=== PATIENT | male | born 1990 | race Caucasian/White ===

== ENCOUNTER 2025-06-10 17:59 | Emergency (ER) | payer OTHER ==
[2025-06-10] MEDS ORDERED: ONDANSETRON 4 MG/2 ML VIAL ONE (18:16)
[2025-06-10] MEDS ORDERED: NA CHLORIDE 0.9% 1,000 ML ONE (18:16)
[2025-06-10 18:18] LABS: Absolute Lymphocytes (CBC) 1.0 K/uL (0.7-4.9); Hematocrit 41.7 % (39.6-49.0); Hemoglobin 14.2 g/dL (13.6-17.9); MCH 31.8 pg (27.0-35.0); MCHC 34.1 g/dL (32.0-36.0); MCV 93.2 fL (80-100); MPV 9.1 fL (7.6-11.3); Nucleated RBC Absolute Count 0.0 (0-0); Nucleated Red Blood Cells % 0.1 % (0-0); RBC Red Blood Cell Count 4.47 M/uL (4.33-5.43); White Blood Count 8.00 thou/uL (4.3-10.9)
[2025-06-10 18:49] LABS: ALT/SGPT 57 U/L (16-61); AST/SGOT 26 U/L (15-37); Albumin 4.1 g/dL (3.4-5.0); Albumin/Globulin Ratio 1.2 (1.1-1.8); Alkaline Phosphatase 85 U/L (45-117); Anion Gap 8.1 mEq/L (5.0-15.0); BUN Blood Urea Nitrogen 16 mg/dL (7-18); Globulin 3.3 g/dL (2.3-3.5); Glucose Level 124 mg/dL (74-106); Potassium 4.1 mEq/L (3.5-5.1)
[2025-06-10 18:52] LABS: Bilirubin Indirect, Calculated 0.1 mg/dL (0.2-0.8)
--- NOTE | 2025-06-10 18:55 | RAD REPORT ---
EXAMINATION: ONE VIEW CHEST XR CLINICAL INDICATION: Male, 34 years old.,COUGH TECHNIQUE: Frontal chest projection is submitted. Examination is limited by patient positioning and t echnique. COMPARISON: No prior exam. FINDINGS: The lungs are well inflated and clear. No pneumothorax or sizable effusion. The heart is normal in s ize. Mediastinal contours are unremarkable. IMPRESSION: No acute intrathoracic abnormalities.
[2025-06-10 18:59] LABS: METHAMPHETAM NEGATIVE (NEGATIVE); THC Cannibis NEGATIVE (NEGATIVE)
--- NOTE | 2025-06-10 20:17 | EDPHYS ---
Physician Documentation [facility] Name: Ravi Marsh Age: 34 yrs Sex: Male : 1990 Arrival Date: 06/10/2025 Time: 17:59 Bed 24 Private MD: ED Physician Jan Hein HPI: 06/10 18:41 This 34 yrs old Male presents to ER via EMS with complaints of Overdose. kb 18:33 Pt is a 34 year old male who presents for nausea and vomiting after taking 25 Rugby kb 650mg tablets. States he took the medication in attempt to kill himself. . Historical: - Allergies: 18:06 No Known Allergies; mb9 - Home Meds: 18:06 None [Active]; mb9 - PMHx: 18:06 None; mb9 - PSHx: 18:06 None; mb9 - Immunization history:: Adult Immunizations up to date. - Infectious Disease History:: Denies. - Social history:: Smoking status: Patient denies any tobacco usage or history of. ROS: 18:33 Constitutional: As per HPI kb Exam: 18:33 Constitutional: This is a well developed, well nourished patient who is awake, alert, kb and in no acute distress. Head/Face: Normocephalic, atraumatic. ENT: Moist Mucous membranes Cardiovascular: Regular rate Respiratory: Respirations even and unlabored. No increased work of breathing. Talking in full sentences Abdomen/GI: Soft, non-tender. No distention Skin: Warm, dry with normal turgor. Normal color. MS/ Extremity: Pulses equal, no cyanosis. Neurovascular intact. Full, normal range of motion. Neuro: Awake and alert, GCS 15, oriented to person, place, time, and situation. Vital Signs: 18:03 BP 123 / 92; Pulse 78; Resp 18; Temp 97.5; Pulse Ox 100% on R/A; Weight 83.91 kg; mb9 Height 6 ft. 0 in. ; Pain 10/10; 18:48 BP 144 / 73; Pulse 78; Resp 18; Pulse Ox 100% on R/A; mb9 20:18 BP 121 / 77; Pulse 79; Resp 18; Pulse Ox 96% on R/A; cc6 18:03 Body Mass Index 25.09 (83.91 kg, 182.88 cm) mb9 18:03 Pain Scale: Adult mb9 MDM: 18:05 Medical Screening Exam initiated kb 18:33 Differential diagnosis: Ingestion/exposure to medications over medication, dehydration, kb abnormal electrolytes, suicidal ideations, suicide attempt. Data reviewed: vital signs, nurses notes. Consideration of Admission/Observation Escalation of care including admission/observation considered. transfer to inpatient psych facility considered but pt is an inmate. Will discharge back to [facility] under watch. Historians other than the Patient: EMS: [facility]. 19:29 Counseling: I had a detailed discussion with the patient and/or guardian regarding the kb historical points, exam findings, and any diagnostic results supporting the discharge/admit diagnosis, lab results, the need for outpatient follow up, a family practitioner, to return to the emergency department if symptoms worsen or persist or if there are any questions or concerns that arise at home. 06/10 18:06 Order name: Acetaminophen; Complete Time: 18:53 kb 06/10 18:06 Order name: Basic Metabolic Panel; Complete Time: 18:53 kb 06/10 18:06 Order name: CBC with Diff; Complete Time: 18:26 kb 06/10 18:06 Order name: ETOH Level; Complete Time: 18:48 kb 06/10 18:06 Order name: Hepatic Function; Complete Time: 18:53 kb 06/10 18:06 Order name: Salicylate; Complete Time: 18:48 kb 06/10 18:06 Order name: Urine Drug Screen; Complete Time: 19:00 kb 06/10 18:06 Order name: Chest Single View XRAY; Complete Time: 19:00 kb 06/10 18:06 Order name: IV Saline Lock; Complete Time: 18:13 kb 06/10 18:06 Order name: Labs collected and sent; Complete Time: 18:13 kb 06/10 18:06 Order name: Suicide Precautions; Complete Time: 18:20 kb 06/10 18:06 Order name: Suicide Screening ([place]); Complete Time: 18:20 kb 06/10 18:27 Order name: Misc. Order: please call poison control for recommendation; Complete Time: kb 19:01 Administered Medications: 18:32 Drug: Ondansetron IVP 4 mg IVP once; over 2 minutes Route: IVP; Site: right antecubital;mb9 18:51 Follow up: Response: No adverse reaction mb9 18:33 Drug: NS 0.9% IV 1000 ml IV at 1000 ml once; to be given as a bolus over 60 minutes mb9 Route: IV; Rate: 1000 ml; Site: right antecubital; 19:00 Follow up: Response: No adverse reaction 9 19:00 Follow up: IV Status: Completed infusion mb9 Disposition: 18:54 I was immediately available on-site in the Emergency Department for consultation in the ms3 care of the patient. Disposition Summary: 06/10/25 20:16 Discharge Ordered Notes: Location: Law Enforcement Condition: Stable kb Diagnosis - overdose on rugby laxatives kb - Suicidal ideations kb Followup: kb - With: Private Physician - When: 2 - 3 days - Reason: Recheck today's complaints, Continuance of care, Re-evaluation by your physician Followup: kb - With: Emergency Department - When: As needed - Reason: Worsening of condition Discharge Instructions: - Discharge Summary Sheet kb - Suicidal Feelings: How to Help Yourself kb - Intentional Drug Overdose kb Forms: - Medication Reconciliation Form kb - Antibiotic Education kb - Prescription Opioid Use kb - Patient Portal Instructions kb - Leadership Thank You Letter kb Signatures: Dispatcher [employer] Maria Esther Winter, PARQUETRY FLOOR LAYER-C PARQUETRY FLOOR LAYER-Jan Suero DO DO ms3 Sulma Vuong, RN RN mb9
--- NOTE | 2025-06-10 20:17 | ER ---
Nurse's Notes [facility] Name: Ravi Marsh Age: 34 yrs Sex: Male : 1990 Arrival Date: 06/10/2025 Time: 17:59 Bed 24 Private MD: Diagnosis: overdose on rugby laxatives;Suicidal ideations Presentation: 06/10 18:03 Chief complaint: EMS states: "toned out for taking 25 pills of Rudby, laxatives, that mb9 were 650mg each. Poison control case # [id number], told to monitor pt for 4 hrs, complete tox panel, treat any diarrhea with IV fluids and antiemetics as needed. Pt reports he did this on purpose with intention to harm self.". Coronavirus screen: Vaccine status: Patient reports being unvaccinated. Ebola Screen: No symptoms or risks identified at this time. Initial Sepsis Screen: Does the patient meet any 2 criteria? No. Patient's initial sepsis screen is negative. Does the patient have a suspected source of infection? No. Patient's initial sepsis screen is negative. Risk Assessment: Do you want to hurt yourself or someone else? Patient reports desire/thoughts of hurting themselves or someone else. Provider notified. Onset of symptoms was June 10, 2025. 18:03 Acuity: SERG 2 mb9 18:03 Method Of Arrival: EMS: [facility] mb9 Triage Assessment: 18:06 General: Appears in no apparent distress. Behavior is cooperative. Pain: Complains of mb9 pain in abdomen Pain does not radiate. Pain currently is 10 out of 10 on a pain scale. Quality of pain is described as aching, Pain began suddenly, Is continuous. EENT: No signs and/or symptoms were reported regarding the EENT system. Neuro: [place]iva Agitation-Sedation Scale (RASS): 0 - Alert and Calm Level of Consciousness is awake, alert, obeys commands, Oriented to person, place, time, situation, Appropriate for age. Cardiovascular: Heart tones S1 S2 present Patient's skin is warm and dry. Respiratory: Airway is patent Respiratory effort is even, unlabored, Respiratory pattern is regular, symmetrical, Breath sounds are clear bilaterally. Respiratory: Reports cough that is. GI: Abdomen is flat, non-distended, Bowel sounds present X 4 quads. Abdomen is tender to palpation X 4 quads. Reports nausea. : No signs and/or symptoms were reported regarding the genitourinary system. Derm: Skin is pink, warm \\T\\ dry. Musculoskeletal: Range of motion: intact in all extremities. Historical: - Allergies: 18:06 No Known Allergies; mb9 - Home Meds: 18:06 None [Active]; mb9 - PMHx: 18:06 None; mb9 - PSHx: 18:06 None; mb9 - Immunization history:: Adult Immunizations up to date. - Infectious Disease History:: Denies. - Social history:: Smoking status: Patient denies any tobacco usage or history of. Screenin:[address] [facility] ED Fall Risk Assessment (Adult) History of falling in the last 3 months, mb9 including since admission No falls in past 3 months (0 pts) Confusion or Disorientation No (0 pts) Intoxicated or Sedated No (0 pts) Impaired Gait No (0 pts) Mobility Assist Device Used No (0 pt) Altered Elimination No (0 pt) Score/Fall Risk Level 0 - 2 = Low Risk Oriented to surroundings, Maintained a safe environment, Educated pt \\T\\ family on fall prevention, incl call for assistance when getting out of bed. Abuse screen: Denies threats or abuse. Nutritional screening: No deficits noted. Tuberculosis screening: No symptoms or risk factors identified. Assessment: 18:07 Reassessment: see triage assessment. mb9 18:09 Reassessment: Murali torress at bedside. 9 19:00 Reassessment: Report received from MARK ANTHONY Shen. cc6 19:20 General: Appears in no apparent distress. comfortable, Behavior is calm, cooperative. cc6 Pain: Denies pain. Neuro: Level of Consciousness is awake, alert, obeys commands, Oriented to person, place, time, situation, Appropriate for age. Cardiovascular: Patient's skin is warm and dry. Respiratory: Airway is patent Respiratory effort is even, unlabored, Respiratory pattern is regular, symmetrical. GI: No signs and/or symptoms were reported involving the gastrointestinal system. : No signs and/or symptoms were reported regarding the genitourinary system. EENT: No signs and/or symptoms were reported regarding the EENT system. Derm: No signs and/or symptoms reported regarding the dermatologic system. Musculoskeletal: Circulation, motion, and sensation intact. Range of motion: intact in all extremities. 20:17 Reassessment: No changes from previously documented assessment. Patient and/or family cc6 updated on plan of care and expected duration. Pain level reassessed. Patient is alert, oriented x 3, equal unlabored respirations, skin warm/dry/pink. Overdose: 18:16 [place] Suicide Severity Screening: "In the past month, have you wished you were mb9 or wished you could go to sleep and not wake up?" Patient responds "yes." Based off client's responses, additional C-SSRS screening questions required. "In the past month, have you actually had any thoughts of killing yourself?" Patient responds "yes." "In your lifetime, have you ever done anything, started to do anything, or prepared to do anything to end your life?" Patient responds "yes." Patient reports suicidal intent within 3 past months. 18:17 [place] Suicide Severity Screening: "In the past month, have you actually had any mb9 thoughts of killing yourself?" Patient responds "yes." Based off client's responses, additional C-SSRS screening questions required. Vital Signs: 18:03 BP 123 / 92; Pulse 78; Resp 18; Temp 97.5; Pulse Ox 100% on R/A; Weight 83.91 kg; mb9 Height 6 ft. 0 in. ; Pain 10/10; 18:48 BP 144 / 73; Pulse 78; Resp 18; Pulse Ox 100% on R/A; mb9 20:18 BP 121 / 77; Pulse 79; Resp 18; Pulse Ox 96% on R/A; cc6 18:03 Body Mass Index 25.09 (83.91 kg, 182.88 cm) mb9 18:03 Pain Scale: Adult mb9 ED Course: 18:03 Patient arrived in ED. mb9 18:05 Maria Esther Dowd [facility]-C [facility] kb 18:05 Jan Hein DO is Attending Physician. kb 18:06 Triage completed. mb9 18:07 Arm band placed on. mb9 18:09 Bed in low position. Call light in reach. Side rails up X 1. Provided Education on: mb9 press call light if needing anything. Client placed on continuous cardiac and pulse oximetry monitoring. NIBP monitoring applied. 18:13 Initial lab(s) drawn, by organic lab worker, sent to lab. Inserted saline lock: 18 gauge in right ts3 antecubital area, using aseptic technique. Blood collected. Flushed with 10 mL NS. 18:17 Maintain EMS IV. Dressing intact. Good blood return noted. Site clean \\T\\ dry. Gauge \\T\\ mb 9 site: 18 g left AC. Flushed with 10 mL NS. 18:20 Sulma Vuong, RN is Primary Nurse. mb9 18:40 Chest Single View XRAY In Process Unspecified. EDMS 20:30 IV discontinued, intact, bleeding controlled, No redness/swelling at site. Pressure cc6 dressing applied. 06/11 00:15 No provider procedures requiring assistance completed. br2 Administered Medications: 06/10 18:32 Drug: Ondansetron IVP 4 mg IVP once; over 2 minutes Route: IVP; Site: right antecubital;mb9 18:51 Follow up: Response: No adverse reaction mb9 18:33 Drug: NS 0.9% IV 1000 ml IV at 1000 ml once; to be given as a bolus over 60 minutes mb9 Route: IV; Rate: 1000 ml; Site: right antecubital; 19:00 Follow up: Response: No adverse reaction mb9 19:00 Follow up: IV Status: Completed infusion mb9 Medication: 18:17 VIS not applicable for this client. mb9 Outcome: 20:16 Discharge ordered by MD. messina 06/11 00:47 Discharged to Law Enforcement br2 Condition: good Discharge instructions given to patient, Instructed on discharge instructions, Demonstrated understanding of instructions, follow-up care, 00:48 Patient left the ED. br2 Signatures: Dispatcher [employer] EDIN Maria Esther Dowd, PEDIATRIC SURGEON-C PEDIATRIC SURGEON-Ckb Sulma Vuong, RN RN mb9 Alma Nunez RN RN br2 Betty Ventura, RN RN cc6 Lina Robbins ts3 Corrections: (The following items were deleted from the chart) 06/10 18:53 18:03 Chief complaint: EMS states: "toned out for taking 25 pills of Rudby, laxatives, mb9 that were 650mg each. Poison control case # [id number], told to monitor pt. Pt reports he did this on purpose with intention to harm self." mb9
[2025-06-11 00:54] VITALS: TEMP 97.5
[2025-06-11 00:58] VITALS: BP 121/77; O2SAT 96
== END 2025-06-11 00:48 ==
LOC: ER 17:59
DX: T47.4X2A Poisoning by other laxatives, intentional self-harm, initial encounter (principal)
CPT/HCPCS: 85025; 80048; 36415; 80076; 80307; 71045; 96374; 99285; 80143; 80179; 82077; J2405; J7030

== ENCOUNTER 2025-06-18 14:13 | Emergency (ER) | payer OTHER ==
[2025-06-18 14:36] LABS: Absolute Lymphocytes (CBC) 1.4 K/uL (0.7-4.9); Hematocrit 41.8 % (39.6-49.0); Hemoglobin 14.2 g/dL (13.6-17.9); MCH 31.8 pg (27.0-35.0); MCHC 33.9 g/dL (32.0-36.0); MCV 93.8 fL (80-100); MPV 8.7 fL (7.6-11.3); Nucleated RBC Absolute Count 0.0 (0-0); Nucleated Red Blood Cells % 0.1 % (0-0); RBC Red Blood Cell Count 4.46 M/uL (4.33-5.43); White Blood Count 5.30 thou/uL (4.3-10.9)
[2025-06-18 14:56] LABS: ALT/SGPT 41.0 U/L (16-61); AST/SGOT 20.0 U/L (15-37); Albumin 3.8 g/dL (3.4-5.0); Albumin/Globulin Ratio 1.2 (1.1-1.8); Alkaline Phosphatase 74.0 U/L (45-117); Anion Gap 7.9 mEq/L (5.0-15.0); BUN Blood Urea Nitrogen 15.0 mg/dL (7-18); Bilirubin Indirect, Calculated 0.3 mg/dL (0.2-0.8); Globulin 3.3 g/dL (2.3-3.5); Glucose Level 99.0 mg/dL (74-106); Potassium 3.9 mEq/L (3.5-5.1)
[2025-06-18 15:09] LABS: Urine Microscopic Reflex YN NO UMIC
--- NOTE | 2025-06-18 18:45 | ER ---
Nurse's Notes [facility] Name: Ravi Marsh Age: 34 yrs Sex: Male : 1990 Arrival Date: 06/18/2025 Time: 14:13 Bed 23 Private MD: Diagnosis: Suicidal ideations;Overdose Presentation: 06/18 14:13 Chief complaint: EMS states: [facility] has a suicidal ideation, iw swallowed 30 tabs tylenol \\T\\ 7 tabs of laxative. 14:13 Method Of Arrival: EMS: [facility] iw 14:13 Coronavirus screen: Client denies travel out of the [place] in the last 14 days. Ebola iw Screen: Patient negative for fever greater than or equal to 101.5 degrees Fahrenheit, and additional compatible Ebola Virus Disease symptoms Patient denies exposure to infectious person. Patient denies travel to an Ebola-affected area in the 21 days before illness onset. Initial Sepsis Screen: Does the patient meet any 2 criteria? No. Patient's initial sepsis screen is negative. Does the patient have a suspected source of infection? No. Patient's initial sepsis screen is negative. Risk Assessment: Do you want to hurt yourself or someone else? Patient reports no desire to harm self or others. Risk Assessment: Do you want to hurt yourself or someone else?. Onset of symptoms was June 18, 2025. Care prior to arrival: Medication(s) given: zofran IV IV initiated. 18 GA, in the right upper arm. 14:13 Acuity: SERG 2 iw Triage Assessment: 14:13 General: Appears in no apparent distress. comfortable, Behavior is calm, cooperative, iw appropriate for age. Pain: Denies pain. EENT: No deficits noted. Neuro: Level of Consciousness is awake, alert, obeys commands, Oriented to person, place, time, situation. Cardiovascular: Patient's skin is warm and dry. Respiratory: Airway is patent Trachea midline Respiratory effort is even, unlabored. GI: Abdomen is flat, non-distended. : No signs and/or symptoms were reported regarding the genitourinary system. Derm: Skin is intact, Skin is dry, Skin is normal. Musculoskeletal: Circulation, motion, and sensation intact. Range of motion: intact in all extremities. Historical: - Allergies: 14:13 No Known Allergies; iw - Immunization history:: Adult Immunizations not up to date. - Infectious Disease History:: Denies. - Social history:: Smoking status: Patient/guardian denies using tobacco, the patient reports quitting approximately 1 years ago. Screenin:15 [facility] ED Fall Risk Assessment (Adult) History of falling in the last 3 months, rg5 including since admission No falls in past 3 months (0 pts) Confusion or Disorientation No (0 pts) Intoxicated or Sedated No (0 pts) Impaired Gait No (0 pts) Mobility Assist Device Used No (0 pt) Altered Elimination No (0 pt) Score/Fall Risk Level 0 - 2 = Low Risk Oriented to surroundings, Maintained a safe environment. Abuse screen: Denies threats or abuse. Nutritional screening: No deficits noted. Tuberculosis screening: No symptoms or risk factors identified. Assessment: 14:15 General: Appears in no apparent distress. comfortable, Behavior is calm. rg5 14:15 Cardiovascular: Rhythm is sinus rhythm. Respiratory: Airway is patent Trachea midline rg5 Respiratory effort is even, unlabored, Respiratory pattern is regular, symmetrical. 15:10 Reassessment: No changes from previously documented assessment. Patient and/or family rg5 updated on plan of care and expected duration. Pain level reassessed. Patient is alert, oriented x 3, equal unlabored respirations, skin warm/dry/pink. 15:15 Reassessment: POISON CONTROL UPDATED (MARJ) - #[id number] - REPEAT ACETA LEVEL \\T\\ 1700 iw HRS. 16:36 Reassessment: No changes from previously documented assessment. Patient and/or family rg5 updated on plan of care and expected duration. Pain level reassessed. Patient is alert, oriented x 3, equal unlabored respirations, skin warm/dry/pink. General: Appears in no apparent distress. comfortable, Behavior is calm, cooperative, appropriate for age. 17:24 Reassessment: No changes from previously documented assessment. Patient and/or family rg5 updated on plan of care and expected duration. Pain level reassessed. Patient is alert, oriented x 3, equal unlabored respirations, skin warm/dry/pink. 17:55 Reassessment: POISON CONTROL UPDATEwith result of acetaminophen level- no further rg5 treatment needed. 18:25 Reassessment: No changes from previously documented assessment. Patient and/or family rg5 updated on plan of care and expected duration. Pain level reassessed. Patient is alert, oriented x 3, equal unlabored respirations, skin warm/dry/pink. Psych: 14:14 [place] Suicide Severity Screening: In the past month, have you wished you were rg5 or wished you could go to sleep and not wake up? Patient responds "No." "In the past month, have you actually had any thoughts of killing yourself?" Patient responds "no." "In your lifetime, have you ever done anything, started to do anything, or prepared to do anything to end your life?" Patient responds "no.". 14:14 Subjective: Patient's mood is elevated, Hallucinations are denied Having thoughts of. rg5 Objective: Patient is uncooperative, Speech is normal, Affect is appropriate. Interventions: Searched person for dangerous items. Urine collected and sent for urine drug test. Safety Checks: Personal items have been removed. Door is open. 3 penitentiary guards present in the rm. Pt denies substance abuse. Vital Signs: 14:13 BP 109 / 79; Pulse 85; Resp 18; Temp 98; Pulse Ox 100% ; Weight 74.39 kg; Height 6 ft. iw 0 in. ; Pain 0/10; 15:47 BP 107 / 68; Pulse 81; Resp 18; Pulse Ox 99% ; rg5 16:35 BP 96 / 63; Pulse 98; Resp 18; Pulse Ox 98% ; rg5 17:10 BP 100 / 71; Pulse 80; Resp 18; Pulse Ox 100% ; rg5 18:20 BP 104 / 71; Pulse 67; Resp 18; Pulse Ox 97% ; rg5 19:17 BP 110 / 72; Pulse 77; Resp 18; Pulse Ox 100% ; Pain 0/10; rg5 14:13 Body Mass Index 22.24 (74.39 kg, 182.88 cm) iw 14:13 Pain Scale: Adult iw 19:17 Pain Scale: Adult rg5 ED Course: 14:13 Arm band placed on. EKG completed in triage. Results shown to MD. iw 14:14 Patient arrived in ED. rk3 14:15 No provider procedures requiring assistance completed. Maintain EMS IV. Dressing rg5 intact. Good blood return noted. Site clean \\T\\ dry. Gauge \\T\\ site: 18g right upper arm. Flushed with 10 mL NS. Patient maintains SpO2 saturation greater than 95% on room air. 14:15 Patient has correct armband on for positive identification. rg5 14:16 Dash Nunez NP is [facility]. cr8 14:16 Jan Hein DO is Attending Physician. cr8 14:23 Jahaira Rosa, RN is Primary Nurse. iw 14:32 Triage completed. iw 14:32 Basic Metabolic Panel Sent. rk3 14:32 Hepatic Function Sent. rk3 14:32 Ptt, Activated Sent. rk3 14:32 ETOH Level Sent. rk3 14:32 Salicylate Sent. rk3 14:32 Acetaminophen Sent. rk3 14:32 CMP Sent. rk3 14:32 CBC with Diff Sent. rk3 15:25 Xiang Hinojosa, MARK ANTHONY is Primary Nurse. rg5 18:38 Almita informed me there were no crisis beds available. bc6 19:11 IV discontinued, intact, bleeding controlled, No redness/swelling at site. Pressure rk3 dressing applied. 19:17 Provided Education on: post er care done. rg5 Administered Medications: No medications were administered Medication: 14:15 VIS not applicable for this client. rg5 Outcome: 18:45 Discharge ordered by MD. cr8 19:17 Condition: stable rg5 19:17 Discharged to Law Enforcement rg5 19:17 Discharge instructions given to patient, law enforcement officer Instructed on discharge instructions, Demonstrated understanding of instructions, 19:18 Patient left the ED. rg5 Signatures: Jahaira Rosa, RN MARK ANTHONY iw Shraddha Dubois bc6 Xiang Hinojosa, MARK ANTHONY HOPSON rg5 Jam Martino rk3 Dash Nunez NP ERP IMPLEMENTATION CONSULTANT cr8 Corrections: (The following items were deleted from the chart) 16:39 15:29 [place] Suicide Severity Screening: rg5 rg5
--- NOTE | 2025-06-18 18:45 | EDPHYS ---
Physician Documentation [facility] Name: Ravi Marsh Age: 34 yrs Sex: Male : 1990 Arrival Date: 06/18/2025 Time: 14:13 Bed 23 Private MD: ED Physician Jan Hein HPI: 06/18 17:06 This 34 yrs old Male presents to ER via EMS with complaints of Suicidal Ideation, cr8 Overdose. 17:06 Patient is a 34-year-old male with a history of psych disorder that comes in the cr8 emergency room for overdose. Reported that he took 30 tablets of acetaminophen/pseudoephedrine and 7 tablets of Fiber-Lax. Patient reports that he was trying to harm himself and commit suicide. Patient does not have any chest pain dyspnea at this time. He is in custody. He is an inmate at correctional facility.. Historical: - Allergies: 14:13 No Known Allergies; iw - Immunization history:: Adult Immunizations not up to date. - Infectious Disease History:: Denies. - Social history:: Smoking status: Patient/guardian denies using tobacco, the patient reports quitting approximately 1 years ago. ROS: 17:06 Constitutional: as per HPI cr8 Exam: 17:06 Constitutional: This is a well developed, well nourished patient who is awake, alert, cr8 and in no acute distress. Cardiovascular: Regular rate and rhythm with a normal S1 and S2. No gallops, murmurs, or rubs. Respiratory: Lungs have equal breath sounds bilaterally, clear to auscultation. No rales, rhonchi or wheezes noted. No increased work of breathing. Abdomen/GI: Soft, non-tender, with normal bowel sounds. No distension. No guarding or rebound. Skin: Warm, dry with normal turgor. Normal color with no rashes, no lesions, and no evidence of cellulitis. MS/ Extremity: Pulses equal, no cyanosis. Neurovascular intact. Full, normal range of motion. Neuro: Awake and alert, GCS 15, oriented to person, place, time, and situation. Cranial nerves II-XII grossly intact. Motor strength 5/5 in all extremities. Sensory grossly intact. Psych: Awake, alert, with orientation to person, place and time. Patient admits to suicidal ideations. 17:06 ECG was reviewed by the Attending Physician. Vital Signs: 14:13 BP 109 / 79; Pulse 85; Resp 18; Temp 98; Pulse Ox 100% ; Weight 74.39 kg; Height 6 ft. iw 0 in. ; Pain 0/10; 15:47 BP 107 / 68; Pulse 81; Resp 18; Pulse Ox 99% ; rg5 16:35 BP 96 / 63; Pulse 98; Resp 18; Pulse Ox 98% ; rg5 17:10 BP 100 / 71; Pulse 80; Resp 18; Pulse Ox 100% ; rg5 18:20 BP 104 / 71; Pulse 67; Resp 18; Pulse Ox 97% ; rg5 19:17 BP 110 / 72; Pulse 77; Resp 18; Pulse Ox 100% ; Pain 0/10; rg5 14:13 Body Mass Index 22.24 (74.39 kg, 182.88 cm) iw 14:13 Pain Scale: Adult iw 19:17 Pain Scale: Adult rg5 MDM: 14:19 Medical Screening Exam initiated cr8 18:40 Data reviewed: vital signs, nurses notes, lab test result(s), EKG, radiologic studies. cr8 Consideration of Admission/Observation Patient was admitted/placed on observation. Management of patient was discussed with the following: Poison control. Care significantly affected by the following Social Determinants of Health: Inadequate housing, Incarceration. Counseling: I had a detailed discussion with the patient and/or guardian regarding the historical points, exam findings, and any diagnostic results supporting the discharge/admit diagnosis, lab results, radiology results, the need for outpatient follow up. ED course: Presentation not consistent with acute organic causes to include delirium, dementia or drug induced disorders (acute ingestions or withdrawal; no evidence of toxidrome). Given history and physical presentation not consistent with overt toxidrome, ingestion. Presentation not consistent with a medical emergency at this time. Considered acetaminophen toxicity so we did a baseline and repeat Tylenol levels at 4 hours. Repeat Tylenol level was not elevated above treatment threshold. Therefore patient is medically cleared. We [place] [facility] [place] but they have no beds available. He will be discharged back to the facility with one-to-one supervision. Did also considered alcohol intoxication but his level was level. Considered salicylate poisoning but that came back unremarkable. Patient did have reported suicidal ideations so he will be on one-to-one supervision at the correctional facility.. 06/18 14:19 Order name: CBC with Diff; Complete Time: 14:38 cr8 06/18 14:19 Order name: CMP; Complete Time: 14:57 cr8 06/18 14:19 Order name: Acetaminophen; Complete Time: 14:57 cr8 06/18 14:19 Order name: Salicylate; Complete Time: 15:38 cr8 06/18 14:19 Order name: ETOH Level; Complete Time: 15:03 cr8 06/18 14:19 Order name: Basic Metabolic Panel cr8 06/18 14:19 Order name: Hepatic Function; Complete Time: 14:57 cr8 06/18 14:19 Order name: Ptt, Activated; Complete Time: 14:57 cr8 06/18 14:40 Order name: UA Rfx Jovanni Cult if indicated; Complete Time: 15:09 cr8 06/18 16:34 Order name: Salicylate; Complete Time: 17:42 rg5 06/18 16:34 Order name: Acetaminophen; Complete Time: 17:42 rg5 06/18 14:39 Order name: EKG; Complete Time: 14:39 cr8 06/18 14:19 Order name: Labs collected and sent; Complete Time: 14:32 cr8 06/18 14:39 Order name: EKG - Nurse/Tech; Complete Time: 14:54 cr8 EC:49 Rate is 78 beats/min. Rhythm is regular. QRS [place] is Normal. GA interval is normal. QRS cr8 interval is normal. QT interval is normal. T waves are Normal. No ST changes noted. Clinical impression: Normal ECG. Interpreted by me. Administered Medications: No medications were administered Disposition: 20:22 I was immediately available on-site in the Emergency Department for consultation in the ms3 care of the patient. Disposition Summary: 06/18/25 18:45 Discharge Ordered Notes: Location: Home cr8 Condition: Stable cr8 Diagnosis - Suicidal ideations cr8 - Overdose cr8 Followup: cr8 - With: Emergency Department - When: As needed - Reason: Worsening of condition, Recheck today's complaints, Re-evaluation by your physician Discharge Instructions: - Discharge Summary Sheet cr8 - Suicidal Feelings: How to Help Yourself cr8 - Helping Someone Who is Suicidal cr8 - Acetaminophen Overdose cr8 Forms: - Medication Reconciliation Form cr8 - Patient Portal Instructions cr8 - Leadership Thank You Letter cr8 Critical care time excluding procedures: 18:40 Critical care time: Bedside Care: 10 minutes, Consultation: 10 minutes. Total time: 20 cr8 minutes Signatures: Dispatcher [employer] Jahaira Mckeon RN RN Jan Hayes DO DO ms3 Dash Nunez NP SHEARING SUPERVISOR cr8
[2025-06-18 19:50] VITALS: TEMP 98
[2025-06-18 19:54] VITALS: BP 104/71; O2SAT 97
== END 2025-06-18 19:18 | disposition home or self-care (01) ==
LOC: ER 14:13
DX: R45.851 Suicidal ideations (principal); T39.1X1A Poisoning by 4-Aminophenol derivatives, accidental (unintentional), initial encounter; T44.991A Poisoning by other drug primarily affecting the autonomic nervous system, accidental (unintentional), initial encounter
CPT/HCPCS: 36415; 80053; 80143; 80179; 81003; 82077; 82248; 85025; 85730; 93005; 99284